=== PATIENT | female | born 1975 | race Caucasian/White ===

== ENCOUNTER 2020-07-23 11:51 | Emergency (ER) | payer OTHER | END 2020-07-23 12:00 | disposition home or self-care (01) | LOC: JVIRT 11:51 | DX: Z11.52 Encounter for screening for COVID-19 (principal) | CPT/HCPCS: C9803; G2012-GT; U0003 ==

== ENCOUNTER 2022-06-17 15:34 | Emergency (ER) | payer OTHER ==
[2022-06-17 15:46] VITALS: BP 108/74; PULSE 80; RESP 16; TEMP 99.2; BMI 21.5
== END 2022-06-17 16:05 | disposition home or self-care (01) ==
LOC: FER 15:34
DX: S61.214A Laceration without foreign body of right ring finger without damage to nail, initial encounter (principal); W26.0XXA Contact with knife, initial encounter
CPT/HCPCS: 99281-25